=== PATIENT | female | born 1970 | race American Indian/Alaskan Native ===

== ENCOUNTER 2017-12-14 17:45 | Emergency (ER) | payer OTHER ==
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
[2017-12-14] MEDS ORDERED: SUBLIMAZE IV ONE (22:08)
[2017-12-14] MEDS ORDERED: NACL 0.9% 1000 ML 1,000 ML IV ONE (22:08)
[2017-12-14 22:16] VITALS: BP 129/83
[2017-12-14 22:54] LABS: Hematocrit 39.4 % (30.3-42.9); Hemoglobin 13.4 gm/dl (10.1-14.3); Mean Corpuscular HGB Conc 34 % (30-34); Mean Corpuscular Hemoglobin 30 pg (28-32); Mean Corpuscular Volume 88 fl (79-97); Platelet Count 236 K/mm3 (140-440); Red Blood Count 4.47 M/mm3 (3.65-5.03); Red Cell Distribution Width 13.1 % (13.2-15.2)
[2017-12-14 23:07] LABS: INR 0.95 (0.87-1.13)
[2017-12-14 23:10] LABS: Alanine Aminotransferase 40 units/L (7-56); Albumin 4.4 g/dL (3.9-5); BUN/Creatinine Ratio 20; Blood Urea Nitrogen 10 mg/dL (7-17); Calcium 9.4 mg/dL (8.4-10.2); Hemolysis Index 10
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
[2017-12-15] MEDS ORDERED: TORADOL IV ONE (01:56)
[2017-12-15] MEDS ORDERED: TORADOL ONE (02:17)
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
== END 2017-12-15 02:45 | disposition home or self-care (01) ==
LOC: ED 17:45
DX: R10.12 Left upper quadrant pain (principal); Z90.711 Acquired absence of uterus with remaining cervical stump
CPT/HCPCS: 36415; 70450; 70496; 70498; 71045; 73070; 74177; 80053; 82550; 83735; 85027; 85610; 93005; 93010; 96361; 96374; 96375; 99285; J1885; J3010; J7030; Q9967